=== PATIENT | male | born 1990 | race Hispanic/Latino ===

== ENCOUNTER 2024-02-20 23:59 | Emergency (ER) | payer SELFPAY ==
[2024-02-21] MEDS ORDERED: Acetaminophen 325 MG TAB ONE (00:29)
[2024-02-21] MEDS ORDERED: Ibuprofen 800 MG TAB ONE (01:52)
== END 2024-02-21 02:09 | disposition home or self-care (01) ==
LOC: ERS 23:59
DX: S09.90XA Unspecified injury of head, initial encounter (principal); S30.0XXA Contusion of lower back and pelvis, initial encounter; S10.93XA Contusion of unspecified part of neck, initial encounter; W20.8XXA Other cause of strike by thrown, projected or falling object, initial encounter
CPT/HCPCS: 70450; 72072; 72125